=== PATIENT | female | born 1995 | race Caucasian/White ===

== ENCOUNTER → 2019-08-17 17:38 | Outpatient (BNVA) | payer MEDICAID, SELFPAY | PROVIDERS: Visit Provider Nurse Practitioner Family | DX: R00.0 Tachycardia, unspecified (principal); Z79.899 Other long term (current) drug therapy; E78.2 Mixed hyperlipidemia; F33.1 Major depressive disorder, recurrent, moderate | CPT/HCPCS: 80053; 80061; 81001; 83036; 84439; 84443; 84481; 85025 ==

== ENCOUNTER → 2019-08-20 08:32 | Outpatient (BNVA) | payer MEDICAID, SELFPAY | PROVIDERS: Visit Provider Nurse Practitioner Psychiatric/Mental Health | DX: F32.4 Major depressive disorder, single episode, in partial remission (principal) | CPT/HCPCS: 99212 ==

== ENCOUNTER → 2019-09-10 07:53 | Outpatient (BNVA) | payer MEDICAID, SELFPAY | PROVIDERS: Visit Provider Nurse Practitioner Psychiatric/Mental Health | DX: F32.4 Major depressive disorder, single episode, in partial remission (principal); F33.41 Major depressive disorder, recurrent, in partial remission | CPT/HCPCS: 99213 ==

== ENCOUNTER 2019-10-01 13:43 | Outpatient (CLI) | payer MEDICAID, SELFPAY ==
--- NOTE | 2019-10-01 14:10 | PFTS_ITS ---
Date of Study:10/01/19 Date of Dictation: MECHANICS: Forced vital capacity (FVC) is normal. Forced expiratory volume in one second (FEV1) is normal. FEV1/FVC is normal. FLOW VOLUME LOOP: Normal. LUNG VOLUMES: Not measured DIFFUSING CAPACITY FOR CARBON MONOXIDE: Not measured INTERPRETATION: The spirometry is normal. MTDD
== END 2019-10-01 13:44 | disposition home or self-care (01) ==
LOC: RT 13:44
PROVIDERS: PCP Nurse Practitioner Family; Visit Provider Nurse Practitioner Family
DX: R06.02 Shortness of breath (principal)
CPT/HCPCS: 94010

== ENCOUNTER → 2019-10-08 08:04 | Outpatient (BNVA) | payer MEDICAID, SELFPAY | PROVIDERS: PCP Nurse Practitioner Family; Visit Provider Nurse Practitioner Psychiatric/Mental Health | DX: F32.4 Major depressive disorder, single episode, in partial remission (principal) | CPT/HCPCS: 99212 ==

== ENCOUNTER → 2019-12-03 08:31 | Outpatient (BNVA) | payer MEDICAID, SELFPAY | PROVIDERS: PCP Nurse Practitioner Family; Visit Provider Nurse Practitioner Psychiatric/Mental Health | DX: F33.41 Major depressive disorder, recurrent, in partial remission (principal) | CPT/HCPCS: 99212 ==

== ENCOUNTER → 2020-01-07 08:48 | Outpatient (BNVA) | payer MEDICAID, SELFPAY | PROVIDERS: PCP Nurse Practitioner Family; Visit Provider Nurse Practitioner Psychiatric/Mental Health | DX: F32.4 Major depressive disorder, single episode, in partial remission (principal) | CPT/HCPCS: 99212 ==

== ENCOUNTER → 2020-03-31 07:40 | Outpatient (BNVA) | payer MEDICAID, SELFPAY | PROVIDERS: PCP Nurse Practitioner Family; Visit Provider Nurse Practitioner Psychiatric/Mental Health | DX: F33.42 Major depressive disorder, recurrent, in full remission (principal) | CPT/HCPCS: 99212 ==

== ENCOUNTER → 2020-06-28 09:05 | Outpatient (BNVA) | payer BC, SELFPAY | PROVIDERS: PCP Nurse Practitioner Family; Visit Provider Nurse Practitioner Psychiatric/Mental Health | DX: F32.4 Major depressive disorder, single episode, in partial remission (principal) | CPT/HCPCS: 99213 ==

== ENCOUNTER → 2020-09-20 14:18 | Outpatient (BNVA) | payer BC, SELFPAY | PROVIDERS: PCP Nurse Practitioner Family; Visit Provider Nurse Practitioner Psychiatric/Mental Health | DX: F32.4 Major depressive disorder, single episode, in partial remission (principal); Z63.0 Problems in relationship with spouse or partner; F12.20 Cannabis dependence, uncomplicated; Z03.89 Encounter for observation for other suspected diseases and conditions ruled out | CPT/HCPCS: 80306; 81025; 99214 ==

== ENCOUNTER → 2020-10-06 07:57 | Outpatient (BNVA) | payer BC, SELFPAY | PROVIDERS: PCP Nurse Practitioner Family; Visit Provider Nurse Practitioner Psychiatric/Mental Health | DX: F32.4 Major depressive disorder, single episode, in partial remission (principal); Z63.0 Problems in relationship with spouse or partner; Z03.89 Encounter for observation for other suspected diseases and conditions ruled out; F12.20 Cannabis dependence, uncomplicated | CPT/HCPCS: 99213 ==

== ENCOUNTER → 2020-10-20 07:35 | Outpatient (BNVA) | payer BC, SELFPAY | PROVIDERS: PCP Nurse Practitioner Family; Visit Provider Nurse Practitioner Psychiatric/Mental Health | DX: F33.1 Major depressive disorder, recurrent, moderate (principal); Z03.89 Encounter for observation for other suspected diseases and conditions ruled out; Z63.0 Problems in relationship with spouse or partner; F12.20 Cannabis dependence, uncomplicated | CPT/HCPCS: 99213 ==

== ENCOUNTER → 2020-12-12 14:48 | Outpatient (BNVA) | payer BC, SELFPAY | PROVIDERS: PCP Nurse Practitioner Family; Visit Provider Nurse Practitioner Psychiatric/Mental Health | DX: F33.1 Major depressive disorder, recurrent, moderate (principal); Z03.89 Encounter for observation for other suspected diseases and conditions ruled out; Z63.0 Problems in relationship with spouse or partner; F12.20 Cannabis dependence, uncomplicated | CPT/HCPCS: 99213 ==

== ENCOUNTER → 2021-01-09 07:01 | Outpatient (BNVA) | payer BC, SELFPAY | PROVIDERS: PCP Nurse Practitioner Family; Visit Provider Nurse Practitioner Psychiatric/Mental Health | DX: F33.1 Major depressive disorder, recurrent, moderate (principal); F12.20 Cannabis dependence, uncomplicated; Z03.89 Encounter for observation for other suspected diseases and conditions ruled out; Z63.0 Problems in relationship with spouse or partner | CPT/HCPCS: 99213 ==

== ENCOUNTER → 2021-04-20 10:50 | Outpatient (BNVA) | payer BC, SELFPAY | PROVIDERS: PCP Nurse Practitioner Family; Visit Provider Nurse Practitioner Psychiatric/Mental Health | DX: Z03.89 Encounter for observation for other suspected diseases and conditions ruled out (principal); Z30.09 Encounter for other general counseling and advice on contraception; Z63.0 Problems in relationship with spouse or partner; F12.20 Cannabis dependence, uncomplicated; F33.1 Major depressive disorder, recurrent, moderate | CPT/HCPCS: 90832; 99214 ==

== ENCOUNTER → 2021-04-27 12:19 | Outpatient (BNVA) | payer BC, SELFPAY | PROVIDERS: PCP Nurse Practitioner Family; Visit Provider Nurse Practitioner Family | DX: K21.9 Gastro-esophageal reflux disease without esophagitis (principal); R53.83 Other fatigue; Z79.899 Other long term (current) drug therapy; E55.9 Vitamin D deficiency, unspecified | CPT/HCPCS: 80053; 80061; 81003; 82306; 83036; 84443; 85025 ==

== ENCOUNTER → 2021-06-13 14:08 | Outpatient (BNVA) | payer BC, SELFPAY | PROVIDERS: PCP Nurse Practitioner Family; Visit Provider Nurse Practitioner Psychiatric/Mental Health | DX: F33.1 Major depressive disorder, recurrent, moderate (principal); Z63.0 Problems in relationship with spouse or partner; F12.20 Cannabis dependence, uncomplicated | CPT/HCPCS: 99214 ==

== ENCOUNTER → 2021-10-06 11:03 | Outpatient (BNVA) | payer BC, SELFPAY | PROVIDERS: PCP Nurse Practitioner Family; Visit Provider Nurse Practitioner Family | DX: Z20.2 Contact with and (suspected) exposure to infections with a predominantly sexual mode of transmission (principal); Z34.90 Encounter for supervision of normal pregnancy, unspecified, unspecified trimester | CPT/HCPCS: 87491; 87591 ==

== ENCOUNTER → 2023-08-19 11:49 | Outpatient (BNVA) | payer BC, SELFPAY | PROVIDERS: PCP Nurse Practitioner Family; Visit Provider Nurse Practitioner Family | DX: Z34.90 Encounter for supervision of normal pregnancy, unspecified, unspecified trimester (principal) | CPT/HCPCS: 81000 ==

== ENCOUNTER → 2024-01-28 10:34 | Outpatient (BNVA) | payer BC, SELFPAY | PROVIDERS: PCP Nurse Practitioner Family; Visit Provider Nurse Practitioner Family | DX: Z13.6 Encounter for screening for cardiovascular disorders (principal); R11.2 Nausea with vomiting, unspecified; K52.9 Noninfective gastroenteritis and colitis, unspecified | CPT/HCPCS: 74018; 80053; 80061; 81003; 81025; 83036; 84439; 84443; 85025; 85651; 86140; 87177; 87209; 87328; 87329; 87426; 87493 ==

== ENCOUNTER → 2024-07-21 10:22 | Outpatient (BNVA) | payer BC, MEDICAID, SELFPAY | PROVIDERS: PCP Nurse Practitioner Family; Visit Provider Nurse Practitioner Family | DX: R06.02 Shortness of breath (principal); D64.9 Anemia, unspecified | CPT/HCPCS: 80053; 82607; 82728; 82746; 83540; 85025 ==

== ENCOUNTER 2024-07-28 11:06 | Outpatient (CLI) | payer BC, MEDICAID, SELFPAY ==
--- NOTE | 2024-07-28 11:15 | US_ITS ---
WS: [id number] ULTRASOUND RIGHT BREAST, complete. HISTORY: N64.4 - Mastodynia COMPARISON: None available. TECHNIQUE: 2-D and Doppler. Ultrasound performed of the entire breast. Normal appearance of the fibroglandular tissue. No masses or distortion. No skin thickening. US/US breast RT limited* [id number] IMPRESSION: BI-RADS: 1- Negative FOLLOW-UP: See Report No RIGHT breast ultrasound abnormality.
--- NOTE | 2024-07-28 11:25 | XRR_ITS ---
PROCEDURE INFORMATION: Exam: XR Chest Exam date and time: 07/28/2024 11:32 AM Age: 29 years old Clinical indication: Right-sided; X2-4 weeks pain in chest and superior right breast that runs down through to inferior breast, no specific injury; Additional info: N64.4 - mastodynia TECHNIQUE: Imaging protocol: Radiologic exam of the chest. Views: 2 views. PA and Lateral COMPARISON: CR XR KUB [id number] 01/28/2024 11:29 AM FINDINGS: Tubes, catheters and devices: None. Lungs: The lungs appear clear without pulmonary venous congestion. Pleural spaces: No pleural effusion. No pneumothorax. Heart/Mediastinum: Mediastinum and dean appear unremarkable. Bones/joints: No acute bony abnormality identified. XR/XR chest 2V* [id number] IMPRESSION: No evidence for an acute cardiopulmonary process.
== END 2024-07-28 11:07 | disposition home or self-care (01) ==
PROVIDERS: PCP Nurse Practitioner Family; Visit Provider Nurse Practitioner Family
DX: N64.4 Mastodynia (principal); R06.02 Shortness of breath; R92.321 Mammographic fibroglandular density, right breast
CPT/HCPCS: 71046; 76642

== ENCOUNTER → 2024-09-02 09:39 | Outpatient (BNVA) | payer BC, MEDICAID, SELFPAY | PROVIDERS: PCP Nurse Practitioner Family; Visit Provider Nurse Practitioner Family | DX: Z12.4 Encounter for screening for malignant neoplasm of cervix (principal); N89.8 Other specified noninflammatory disorders of vagina | CPT/HCPCS: 87070; 87205; 87624 ==

== ENCOUNTER → 2025-02-01 11:29 | Outpatient (BNVA) | payer BC, SELFPAY | PROVIDERS: PCP Nurse Practitioner Family; Visit Provider Nurse Practitioner Psychiatric/Mental Health | DX: Z03.89 Encounter for observation for other suspected diseases and conditions ruled out (principal) | CPT/HCPCS: 84439; 84443 ==

== ENCOUNTER → 2025-03-29 11:50 | Outpatient (BNVA) | payer BC, SELFPAY | PROVIDERS: PCP Nurse Practitioner Family; Visit Provider Nurse Practitioner Psychiatric/Mental Health | DX: Z03.89 Encounter for observation for other suspected diseases and conditions ruled out (principal) | CPT/HCPCS: 80307 ==